=== PATIENT | female | born 1990 | race Caucasian/White ===

== ENCOUNTER 2020-01-18 11:05 | Outpatient (CLI) | payer BC, SELFPAY ==
--- NOTE | ~2020-01-18 | US_ITS ---
US abdomen limited INDICATION: Right upper quadrant pain, nausea and vomiting PROCEDURE: Realtime right upper abdominal ultrasound. COMPARISON: No prior studies for comparison. FINDINGS: The pancreas is normal without focal mass or pancreatic ductal dilation. Liver echotexture is normal without focal mass or intrahepatic biliary dilatation. There is normal directional flow i n the portal vein. There are gallstones. There is gallbladder wall thickening. Common bile duct measures 3 mm. No sono graphic Sanderson's sign. IMPRESSION: 1: Cholelithiasis with mild gallbladder wall thickening. Consider cholecystitis in the appropriate cl inical setting. Reviewed, dictated and finalized at location A. IMPRESSION: 1: Cholelithiasis with mild gallbladder wall thickening. Consider cholecystitis in the appropriate clinical setting.
== END 2020-01-18 11:06 ==
PROVIDERS: PCP Family Medicine; Visit Provider Family Medicine
DX: K80.20 Calculus of gallbladder without cholecystitis without obstruction (principal)
CPT/HCPCS: 76705

== ENCOUNTER 2020-03-17 06:19 | Outpatient (CLI) | payer BC, SELFPAY ==
[2020-03-17 16:20] LABS: SARS-CoV-2 RNA PCR Negative
== END 2020-03-17 06:20 | disposition home or self-care (01) ==
LOC: ANHCOVIDDT 06:20
PROVIDERS: PCP Family Medicine; Visit Provider Surgery
DX: Z01.818 Encounter for other preprocedural examination (principal); K80.10 Calculus of gallbladder with chronic cholecystitis without obstruction; Z11.59 Encounter for screening for other viral diseases
CPT/HCPCS: 87635; C9803; U0003

== ENCOUNTER 2020-03-17 09:15 | Outpatient (CLI) | payer SELFPAY ==
[2020-03-17 09:55] LABS: Alanine Aminotransferase 19 U/L (4-35); Albumin Level 4.3 g/dL (3.5-5.1); Alkaline Phosphatase 64 U/L (38-126); Amylase 92 U/L (30-110); Aspartate Amino Transferase 25 U/L (14-36); Bilirubin,Total 0.2 mg/dL (0.2-1.3); Lipase 67 U/L (23-300)
== END 2020-03-17 09:16 | disposition home or self-care (01) ==
PROVIDERS: PCP Family Medicine; Visit Provider Surgery
DX: Z01.818 Encounter for other preprocedural examination (principal); K80.10 Calculus of gallbladder with chronic cholecystitis without obstruction
CPT/HCPCS: 36415; 80076; 82150; 83690

== ENCOUNTER 2020-03-20 00:25 | Day surgery (SDC) | payer SELFPAY ==
[2020-03-14 13:30] VITALS: BMI 36.0
[2020-03-20] VITALS (10 sets, daily range): BP systolic 115–135; BP diastolic 52–85; PULSE 60–92; RESP 10–24; TEMP 36.2–36.8; O2SAT 94–100
--- NOTE | 2020-03-20 09:13 | PM.HPGS ---
History of Present Illness History of Present Illness Consent: Risks, benefits, and alternatives of a laparoscopic cholecystectomy with possible cholangiogram possible open cholecystectomy have been discussed and questions answered. Patient agrees to proceed with procedure. Chief complaint: Chronic Cholecystitis with Cholelithiasis Narrative: Zoë Biggs is a 29 year old female that presents to the office at the request of Dr Pepper for an evaluation of abdominal pain. Patient had an abdominal ultrasound at [facility] on 01/18/2020 that showed cholelithiasis with mild gallbladder wall thickening. Patient reports she first noticed pain around 2018. She reports that the pain she is experiencing is in her RUQ pain that radiated to her back. She reports having nausea after fatty meals. She reports the most recent episode was last weekend with a minor one and after spaghetti with ground turkey 2 weeks before her last office visit. Admits she has been eating a low fat diet over the last 2 weeks and this has seemed to help. Prior to starting the low fat diet she reports that her episodes were becoming more frequent and she would notice more episodes on the weekend. Patient denies any previous abdominal surgeries. Review of Systems Constitutional: Constitutional: Reports no additional constitutional complaints, Reports fatigue and Denies malaise Eyes: Eyes: Denies change in vision and Denies loss of vision ENT: Reports Normal hearing present, Denies change in voice, Denies dizziness, Denies hoarseness and Denies sore throat Cardiovascular: Cardiovascular: Denies chest pain, Denies leg edema and Denies dyspnea Respiratory: Respiratory: Denies cough, Denies dyspnea and Denies wheezing Gastrointestinal: Gastrointestinal: Denies hematochezia, Denies change in bowel habits and Denies heartburn Genitourinary: Genitourinary: Denies urinary frequency and Denies urinary incontinence Neurologic: Reports Normal hearing present, Denies confusion, Denies dizziness, Denies loss of vision, Denies memory loss and Denies seizure-like activity Psychiatric: Psychiatric: Denies confusion, Denies depression and Denies memory loss Endocrine: Endocrine: Denies cold intolerance and Reports fatigue Hematologic/Lymphatic: Hematologic/Lymphatic: Denies easy bleeding and Denies easy bruising Allergic/Immunologic: Allergic/Immunologic: Denies wheezing PMFSH Past Medical History Medical History Asthma Uncontrolled depression Surgical History Surgical History H/O LEEP History of eye surgery fixed lazy eye Ingrown toenail Tonsillectomy planned Rombauer teeth removed Family History Family History Mother Crohn's disease Unknown Cerebrovascular accident Social History Social History Social History: Single Tobacco type: e-cigarettes/vaping Second hand tobacco smoke exposure: Yes Alcohol intake: current Substance use: current Substance use type: marijuana 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 Gender identity (if verbalized by the patient): Female Meds Home Medications and Allergies Home Medications Medication Instructions Recorded Confirmed Type L norgest/e.estradiol-e.estrad 1 tablet PO DAILY 01/17/20 03/14/20 History 0.15 mg-30 mcg (84)/10 mcg(7) tabs,3mos Allergies Allergy/AdvReac Type Severity Reaction Status Date / Time Penicillins Allergy Mild hives Verified 03/14/20 13:33 Exam Const: General: cooperative, healthy appearing, no acute distress, well developed and alert; No confusion Nutritional Appearance: well nourished Orientation/consciousness: patient oriented x3 and No confusion Limitations: no limitations HENMT: Head:
[2020-03-20] MEDS: LACTATED RINGERS 1,000 ML 30 ML IV CONT ×2 (09:36→13:29)
--- NOTE | 2020-03-20 10:32 | P.PNAN_ITS ---
Anes - Initial Pre Proc Eval Procedure: Operation Date: 03/20/20 11:00 Proposed Procedures p Laparoscopic Cholecystectomy, Possible Intraoperative Cholangiogram, Possible Open - Joey Biggs MD Date/Time: 03/20/20 10:32 Surgeon: Joey Biggs MD Pre Op Diagnosis: Chronic Cholecystitis with Cholelithiasis Patient Data Age: 29 Gender: F Height: 5 ft 7 in Weight: 108.2 kg Last Vital Signs Temp 36.8 C 03/20/20 09:40 Pulse 71 03/20/20 09:40 Resp 16 03/20/20 09:40 BP 115/52 L 03/20/20 09:40 Pulse Ox 99 03/20/20 09:40 Allergies Allergy/AdvReac Type Severity Reaction Status Date / Time Penicillins Allergy Mild hives Verified 03/14/20 13:33 Home Medications Medication Instructions Recorded Confirmed Type L norgest/e.estradiol-e.estrad 1 tablet PO DAILY 01/17/20 03/14/20 History 0.15 mg-30 mcg (84)/10 mcg(7) tabs,3mos Patient hx anesthesia problems: none Family hx anesthesia problems: none PMFSH Past Medical History Medical History Asthma Uncontrolled depression Surgical History Surgical History H/O LEEP History of eye surgery fixed lazy eye Ingrown toenail Tonsillectomy planned [place] teeth removed Family History Family History Mother Crohn's disease Unknown Cerebrovascular accident Social History Social History Social History: Single Tobacco type: e-cigarettes/vaping Second hand tobacco smoke exposure: Yes Alcohol intake: current Substance use: current Substance use type: marijuana 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 Questions were solicited and answers provided to the satisfaction of the patient/family/POA.
[2020-03-20] MEDS: CLINDAMYCIN 900 MG/NS 50 ML 900 MG/50 ML PIGGYBACK 50 MG IVPB (11:33)
[2020-03-20] MEDS: BUPIVACAINE/EPINEPHRINE 0.5% 30 ML VIAL INFILTRATE (12:00)
--- NOTE | 2020-03-20 13:00 | SUR.OPER ---
EBL:20cc
--- NOTE | 2020-03-20 13:28 | PM.PROC ---
Procedure Note - Detailed Date of procedure: 03/20/20 Pre-op diagnosis: Chronic Cholecystitis with Cholelithiasis Post-op diagnosis: same Procedure performed: Laparoscopic cholecystectomy Description of procedure: Procedure Details: Patient was seen preoperatively in the holding area and risks, benefits and alternatives confirmed. Patient was taken to the operating room and general anesthesia was induced. A time out was then preformed with the surgery team confirming patient and site of surgery. The abdomen was prepped and draped in the usual sterile fashion. Incision was made just below the umbilicus. Two stay sutures of O- Vicryl were used to elevate the mid-line fascia beneath the umbilicus and a small incision was made under direct vision. The peritoneum was entered. The 12 mm Arriaza cannula was introduced under direct vision. First under low flow and then under high flow the abdomen was insufflated with carbon dioxide never exceeding a pressure of 14. Three 5 mm trocars were then introduced under direct vision. An extra long 5 mm trocar was used in the subcostal region at the middle of the 3 subcostal port sites. The following trocars were introduced under direct vision: a 5 mm in the epigastrium and two 5 mm trocars along the right costal margin. With proper retraction I carefully dissected the triangle of Chalot. We identified 2 structures extending to the gallbladder 1 appeared to be cystic duct the of the cystic artery in a window safety between the liver and these was identified. The gall bladder was grasped and the cystic duct and artery were dissected free and clipped with an 5 mm endo-clip aoc operations intelligence officer. Having identified the window of safety we then went ahead and divided the structures. The cystic duct was then transected. The cystic artery was also transected at this point. The gall bladder was removed using electrocautery and then removed using a large 10 mm grasper via the umbilical incision. There was 1 fairly large palpable stone within the gallbladder upon removal. The trocars were removed visualizing hemostasis and the remaining gas evacuated. The large trocar site at the umbilicus was closed with an 0 vicryl figure of 8 suture. The 2 stay sutures mentioned above on either side of the fascia were also tied together to help approximate this midline fascia. Further local anesthetic was placed into each incision for postop pain control. The skin incisions were closed with a subcuticular of 4-0 Monocryl. Surgical glue then was applied to all the incisions. Patient tolerated the procedure well was taken to the recovery room in good condition. Anesthesia: GETA Surgeon: Joey Biggs MD [employer]: SUE Ruelas, OR 1st assist Estimated blood loss (mL): 20 Drains: No Packing: No Pathology: yes (The gallbladder) Complications: No immediate complications Condition: stable Disposition: PACU Findings: A single palpable stone within the gallbladder upon removal. There was not much gallbladder inflammation at the time of surgery.
[2020-03-20] MEDS: ONDANSETRON INJ 4 MG/2 ML VIAL IV PUSH (13:40)
[2020-03-20] MEDS: SCOPOLAMINE 1.5 MG PATCH TRANSDERM (14:19)
== END 2020-03-20 15:40 | disposition home or self-care (01) ==
PROVIDERS: PCP Family Medicine; Visit Provider Surgery
PROC: 0FT44ZZ Resection of Gallbladder, Percutaneous Endoscopic Approach (ICD-10-PCS; CPT 47562; principal; 2020-03-20 11:00)
DX: K80.10 Calculus of gallbladder with chronic cholecystitis without obstruction (principal); J45.909 Unspecified asthma, uncomplicated; F32.9 Major depressive disorder, single episode, unspecified; F17.290 Nicotine dependence, other tobacco product, uncomplicated
CPT/HCPCS: 47562; 88304; A9270; J0131; J0330; J1100; J1200; J2001; J2250; J2405; J2704; J2710; J3010; J7120

== ENCOUNTER 2020-05-15 16:47 | Emergency (ER) | payer SELFPAY ==
[2020-05-15 16:53] VITALS: BP 121/68; PULSE 104; RESP 16; TEMP 37.1; O2SAT 100
--- NOTE | 2020-05-15 17:03 | ED.SKABFB ---
HPI - Skin/Abscess/Foreign Bdy General Chief complaint: Extremity Injury, Lower Stated complaint: Right leg injury Time Seen by Provider: 05/15/20 17:03 Source: patient and RN notes reviewed History of Present Illness HPI narrative: Patient is a 29-year-old female who presents the urgent care with complaints of a puncture wound to the right leg. Patient states that she just moved into a new home and 1 of the steps of her wooden deck came undone, and a nail stuck her in the right leg. Patient states that the incident occurred just prior to arrival. Patient does not believe she is up-to-date on her tetanus shot. No other acute complaints or injuries. No acute distress noted. Patient read the plan of care. Related Data Home Medications Medication Instructions Recorded Confirmed No Home Medications 05/15/20 05/15/20 Allergies Allergy/AdvReac Type Severity Reaction Status Date / Time Penicillins Allergy Mild hives Verified 05/15/20 17:05 Review of Systems Review of Systems: Narrative: CONSTITUTIONAL: Denies fever, chills, or sweats. EYES: Denies visual changes, redness, or discharge. ENT: Denies rhinorrhea, congestion, sore throat, or otalgia. CARDIOVASCULAR: Denies chest pain, palpitations, or edema. RESPIRATORY: Denies cough or dyspnea. GASTROINTESTINAL: Denies abdominal pain, nausea, vomiting, or diarrhea. GENITOURINARY: Denies dysuria or hematuria. SKIN: Reports of a puncture wound to the right leg MUSCULOSKELETAL: Denies back pain, joint pain, or myalgia. NEUROLOGIC: Denies headache, numbness, or weakness. All other systems reviewed are negative, except as documented in HPI. 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 There is no relevant family history pertinent to the patient complaint. Exam Narrative: Exam Narrative: GENERAL: This is a well-nourished, well-developed patient, in no apparent distress. HEAD: normocephalic, atraumatic. EYES: PERRL. Sclera clear/white. Vision is grossly intact. EARS: External ears normal NOSE: External nose normal with no obvious nasal discharge, nares without redness, no rhinorrhea. THROAT: Mucous membranes moist NECK: Neck supple SKIN: 0.5 cm in diameter puncture wound noted to the lateral aspect of the right lower extremity, bleeding controlled prior to arrival NEURO: awake, alert, and oriented to person, place and time. There were no obvious focal neurologic abnormalities. EXTREMITIES: No clubbing, cyanosis, or edema. Course Vital Signs Vital signs: Vital Signs Temperature 98.7 F 05/15/20 16:53 Pulse Rate 104 H 05/15/20 16:53 Respiratory Rate 16 05/15/20 16:53 Blood Pressure 121/68 05/15/20 16:53 Pulse Oximetry 100 05/15/20 16:53 Temperature 98.7 F 05/15/20 16:53 Pulse Rate 104 H 05/15/20 16:53 Respiratory Rate 16 05/15/20 16:53 Blood Pressure 121/68 05/15/20 16:53 Pulse Oximetry 100 05/15/20 16:53 Reviewed Procedures Other Procedure Procedure 1: Other Procedure: 0.5 cm diameter puncture wound to the lateral aspect of the right lower extremity. Wound cleansed with Technicare and normal saline. Skin approximated with Steri-Strips. Patient tolerated well. MDM - Skin/Abscess/Foreign Bdy MDM Narrative Medical decision making narrative: Advised the patient to keep the wound very clean and free of debris with plain Dial soap and water. The puncture wound is likely to leave a small scar. May reinforce Steri-Strips when necessary. I would recommend follo
== END 2020-05-15 17:15 | disposition home or self-care (01) ==
PROVIDERS: Emergency Provider Nurse Practitioner Family
DX: S81.831A Puncture wound without foreign body, right lower leg, initial encounter (principal); W45.0XXA Nail entering through skin, initial encounter; F17.200 Nicotine dependence, unspecified, uncomplicated
CPT/HCPCS: 99212; G0463